=== PATIENT | female | born 1960 | race Caucasian/White ===

== ENCOUNTER 2016-08-28 19:01 | Emergency (ER) | payer OTHER ==
[2016-08-28 19:16] VITALS: RESP 16; TEMP 98.2
--- NOTE | 2016-08-28 19:49 | EDPHY ---
H & P Time Seen by Provider: 08/28/16 19:46 HPI/ROS: HPI: 56-year-old female presents to emergency department with chief concern lip laceration. Occurred 1 hour prior to arrival when [place] [address]. Sustained 2 lacerations just superior to the right upper lip. There is no other injury time of incident. She denies numbness or tingling. Up-to-date with tetanus. ROS:10 point review of systems is negative other than as stated in HPI Smoking Status: Never smoked Physical Exam: Vital signs stable, reviewed by me General: Awake, alert, calm, cooperative. No acute distress. Head: Normalocephalic. Atraumatic. EENT: PERRLA. EOMI. CV: Distal pulses 2+ bilaterally. Brisk cap refill all extremities. Neuro: Alert. Oriented x 3. Speech clear. Sensation intact all extremities. Sensation intact to the lips. Skin: Skin warm, dry. Vertical 1 cm and 0.75 cm lacerations superior to the right upper lip. [place] border spared. Musculoskeletal: Strength 5+ all extremities. Constitutional: Initial Vital Signs Temperature (C) 36.8 C 08/28/16 19:12 Heart Rate 72 08/28/16 19:12 Respiratory Rate 16 08/28/16 19:12 Blood Pressure 174/106 H 08/28/16 19:12 O2 Sat (%) 96 08/28/16 19:12 O2 Delivery Mode Room Air Allergies/Adverse Reactions: No Known Allergies Allergy (Verified 01/02/15 06:03) Home Medications: Medication Instructions Recorded Estrogens,Conjugated 01/02/15 Progesterone 01/02/15 ASPIRIN 08/28/16 ED Images - Head Head Front/Back: 1 - 1 cm laceration 2 - 0.75 cm laceration Medical Decision Making Procedures: After verbal consent was obtained and risks and benefits explained, the lacerations were anesthetized using a total of 4 ml of 0.5% Marcaine without epinephrine. Lac then irrigated per protocol by solar technician. Under sterile procedure, the wound was explored to its base with a gloved finger and no foreign body was identified. No deep structure identified. Wound was then draped and sterile procedure followed during laceration repair. Lac 1. was repaired using # 4, 6-0 Prolene sutures. Lack #2 Was repaired using #2, 6-0 Prolene After repair, laceration cleansed, bacitracin and sterile dressing applied. Procedure performed by myself. Procedure was simple. Pt tolerated the procedure well. Departure - Departure Disposition: Home, Routine, Self-Care Clinical Impression: Lip laceration Qualifiers: Encounter type: initial encounter Qualifier Code: (S01.511A) Laceration without foreign body of lip, initial encounter Condition: Good Instructions: Laceration (ED), Care For Your Stitches (ED) Additional Instructions: Plan: We saw you here today at the ED with a laceration of your upper lip. We'll have you begin cleaning the area daily by letting warm, soapy water run over it , but do not scrub or rub the site. Remove dried blood with a Q-tip dipped in water. Apply a thin layer of antibiotic ointment. Continue this routine daily. Recheck urgently if the area develops redness, swelling, increased pain , or red streaking above the wound, or if you develop a fever. Return to the emergency department in 5 days for suture removal. Return prior to then if any issues or concerns. Referrals: JOEL KIRKLAND [Primary Care Provider] - As per Instructions
[2016-08-28 20:39] VITALS: BP 154/93; PULSE 78; O2SAT 98
== END 2016-08-28 20:39 | disposition home or self-care (01) ==
PROC: 0CQ0XZZ Repair Upper Lip, External Approach (ICD-10-PCS; principal; 2016-08-28)
DX: S01.511A Laceration without foreign body of lip, initial encounter (principal); Z79.82 Long term (current) use of aspirin; X58.XXXA Exposure to other specified factors, initial encounter; Y92.89 Other specified places as the place of occurrence of the external cause

== ENCOUNTER 2018-02-16 15:41 | Emergency (ER) | payer SELFPAY ==
[2018-02-16] MEDS ORDERED: ONDANSETRON 4 MG/2 ML VIAL IVP ONE (16:07)
[2018-02-16] MEDS ORDERED: NS 1,000 ML IV ONE ×2 (16:09→17:06)
--- NOTE | 2018-02-16 16:13 | EDPHY ---
H & P Time Seen by Provider: 02/16/18 15:43 HPI/ROS: CHIEF COMPLAINT: Nausea, vomiting, diarrhea HISTORY OF PRESENT ILLNESS: Patient states she ate two soy burgers yesterday evening for dinner and right away felt ill. She states that about 130 last night she had"fire hose"diarrhea with lots of abdominal cramping and pressure. She did not get much sleep last night with continued diarrhea. She had nausea with dry heaves since about 7:00 a.m. This morning. Describes abdominal pain as diffuse. She also describes chills and possibly fever although never checked temperature. For the rest of today she has been laying in bed and feels "so weak" and was not getting better so decided to come in for evaluation. She also describes a headache. Denies recent travel or sick contacts. No rashes. No blood in stool or vomit. She did try some Pepto- Bismol and Imodium last night with no improvement. REVIEW OF SYSTEMS: Constitutional: Chills present, possible fever. Eyes: No discharge. ENT: No sore throat. Cardiovascular: No chest pain, no palpitations. Respiratory: No cough, no shortness of breath. Gastrointestinal: Per HPI Genitourinary: No dysuria. Musculoskeletal: No back pain. Skin: No rashes. Neurological: Headache present. General Appearance: Alert, no distress. Eyes: Pupils equal and round no pallor or injection. ENT, Mouth: Mucous membranes moist. Respiratory: There are no retractions, lungs are clear to auscultation. Cardiovascular: Regular rate and rhythm. Gastrointestinal: Abdomen is soft, diffusely tender to palpation, bowel sounds hyperactive. No focal tenderness. Neurological: Alert, no focal neurologic deficits Skin: Warm and dry, no rashes. Musculoskeletal: Neck is supple nontender. Extremities are symmetrical, full range of motion, no edema. Psychiatric: Patient is oriented X 3, there is no agitation. Medical/surgical history: Several orthopedic surgeries, breast augmentation. Social history: No tobacco, alcohol, drugs Smoking Status: Never smoked Constitutional: Initial Vital Signs Temperature (C) 36.7 C 02/16/18 15:45 Heart Rate 104 H 02/16/18 15:45 Respiratory Rate 16 02/16/18 15:45 Blood Pressure 125/99 H 02/16/18 15:45 O2 Sat (%) 94 02/16/18 15:45 O2 Delivery Mode Room Air Allergies/Adverse Reactions: No Known Allergies Allergy (Verified 02/16/18 15:45) Home Medications: Medication Instructions Recorded Estrogens,Conjugated 01/02/15 Progesterone 01/02/15 ASPIRIN 08/28/16 Excedrin Extra Strength Caplet 02/16/18 Medical Decision Making ED Course/Re-evaluation: 5:00 p.m. re-evaluation after IV fluids. Patient feeling better although mildly tachycardic with a pulse in the 90s. Will give 2nd leader of normal saline. Also planned for oral potassium replacement when tolerating p.o. 5:20 p.m. patient asking to be discharged states feeling much better. Differential Diagnosis: Differential diagnosis includes but is not limited to gastroenteritis, dehydration, hypokalemia, acute abdomen. After evaluation in the emergency department patient likely with food-borne illness with nausea, vomiting and diarrhea. No blood, fever, peritoneal signs to suggest more serious infectious process. Noted to be hypokalemic mildly in the emergency department and potassium replacement given here, also discussed increase potassium intake as outpatient once home and tolerating normal diet. Discussed return precautions. Stable for discharge. - Data Points Laboratory Results: 02/16/18 16:23 POC Hgb 15.3 gm/dL gm/dL (12.6-16.3) POC Hct 45 % % (38-47) POC Sodium 139 mEq/L mEq/L (135-145) POC Potassium 3.0 mEq/L L mEq/L (3.3-5.0) POC Chloride 105 mEq/L mEq/L (97-110) POC BUN 5 mg/dL L mg/dL (7-23) POC Creatinine 0.5 mg/dL L mg/dL (0.6-1.0) POC Glucose 97 mg/dL mg/dL (70-100) Medications Given: Discontinued Medications Sodium Chloride (Ns) 1,000 mls @ 0 mls/hr IV ONCE ONE; Wide Open PRN Reason: Protocol Stop: 02/16/18 16:10 Last Admin: 02/16/18 16:17 Dose: 1,000 mls Sodium Chloride (Ns) 1,000 mls @ 0 mls/hr IV ONCE ONE PRN Reason: Wide Open Stop: 02/16/18 17:07 Last Admin: 02/16/18 17:02 Dose: 1,000 mls Ketorolac Tromethamine (Toradol) 15 mg IVP EDNOW ONE Stop: 02/16/18 17:08 Last Admin: 02/16/18 17:13 Dose: 15 mg Ondansetron HCl (Zofran) 4 mg IVP EDNOW ONE Stop: 02/16/18 16:08 Last Admin: 02/16/18 16:23 Dose: 4 mg Ondansetron HCl (Zofran Odt 4 Mg Prepack#2) 1 btl TAKEHOME EDNOW ONE Stop: 02/16/18 17:19 Last Admin: 02/16/18 17:36 Dose: 1 btl Potassium Chloride (Klor-Con) 20 meq PO ONCE ONE Stop: 02/16/18 17:09 Last Admin: 02/16/18 17:17 Dose: 20 meq Point of Care Test Results: Chemistry 02/16/18 16:23 POC Sodium 139 mEq/L mEq/L (135-145) POC Potassium 3.0 mEq/L L mEq/L (3.3-5.0) POC Chloride 105 mEq/L mEq/L (97-110) POC BUN 5 mg/dL L mg/dL (7-23) POC Creatinine 0.5 mg/dL L mg/dL (0.6-1.0) POC Glucose 97 mg/dL mg/dL (70-100) ISTAT H&H 02/16/18 16:23 POC Hgb 15.3 gm/dL gm/dL (12.6-16.3) POC Hct 45 % % (38-47) Departure - Departure Clinical Impression: Acute gastroenteritis, Hypokalemia Condition: Good Instructions: Ondansetron (By mouth), Hypokalemia (ED), Gastroenteritis (ED) Additional Instructions: Clear liquids only tonight. Advance diet slowly as discussed. Avoid dairy. Follow up with her primary care physician or return to the emergency department if your symptoms return or worsen. You were low on your potassium today in the emergency department try to take potassium rich foods when you have resumed a normal diet. Referrals: JOEL KIRKLAND [Primary Care Provider] - As per Instructions
[2018-02-16] MEDS ORDERED: KETOROLAC 15 MG/1 ML SDV IVP ONE (17:07)
[2018-02-16] MEDS ORDERED: POTASSIUM CL 20 MEQ TAB PO ONE (17:08)
[2018-02-16] MEDS ORDERED: ONDANSETRON 4MG PREPACK#2 BTL TAKEHOME ONE (17:18)
[2018-02-16 17:45] VITALS: BP 133/85
== END 2018-02-16 17:50 | disposition home or self-care (01) ==
LOC: CED 15:41
DX: K52.9 Noninfective gastroenteritis and colitis, unspecified (principal); E87.6 Hypokalemia; E86.9 Volume depletion, unspecified; Z79.82 Long term (current) use of aspirin
CPT/HCPCS: 82435-PO; 82565-PO; 82947-PO; 84132-PO; 84295-PO; 84520-PO; 85014-PO; 96374; J1885; J2405